=== PATIENT | female | born 1985 | race Hispanic/Latino ===

== ENCOUNTER 2022-01-25 03:42 | Emergency (ER) | payer SELFPAY ==
[2022-01-25 07:04] LABS: Bilirubin,Urine NEG (Negative); Blood,Urine SM (Negative); Color,Urine Amber (Yellow)
[2022-01-25 07:13] LABS: Amphetamine Screen,Urine PRESUMPTIVE POSITIVE; Benzodiazepines Screen,Urine PRESUMPTIVE NEGATIVE; Cannabinoid Screen,Urine PRESUMPTIVE NEGATIVE; Cocaine Screen,Urine PRESUMPTIVE NEGATIVE; Methadone Screen,Urine PRESUMPTIVE NEGATIVE; Opiate Screen,Urine PRESUMPTIVE POSITIVE
[2022-01-25 07:15] LABS: Mucus,Urine 3+ /HPF
[2022-01-25 07:17] LABS: HCG Qualitative,Urine Negative (Negative)
[2022-01-25 08:08] LABS: Basophils # (Auto) 0.1 K/mm3 (0.0-0.1); Basophils % (Auto) 1.5 % (0.0-1.8); Hemoglobin 10.7 gm/dl (10.1-14.3); Lymphocytes % (Auto) 21.5 % (13.4-35.0); Mean Corpuscular HGB Conc 31 % (30-34); Mean Corpuscular Volume 71 fl (79-97); Monocytes # (Auto) 0.5 K/mm3 (0.0-0.8); Monocytes % (Auto) 9.7 % (0.0-7.3); Platelet Count 285 K/mm3 (140-440); Red Blood Count 4.78 M/mm3 (3.65-5.03); Red Cell Distribution Width 17.7 % (13.2-15.2)
[2022-01-25 08:25] LABS: BUN/Creatinine Ratio 20; Blood Urea Nitrogen 12 mg/dL (7-17); Calcium 9.1 mg/dL (8.4-10.2); Hemolysis Index 19
--- NOTE | 2022-01-25 11:21 | Emergency Department Report ---
ED Psych HPI - General Chief Complaint: Psych Stated Complaint: SUICIDAL Time Seen by Provider: 01/25/22 06:15 Source: patient Mode of arrival: Ambulatory - History of Present Illness Initial Comments: Patient presents with stating that she has been having an parasitic infection has been going on for several years. She states that she recently used IV heroin and meth last night. She states that the heroin makes the worms go away. She states that she is feeling homicidal towards her clinical staff educator for giving her the meth. She has no suicidal ideation. - Related Data Allergies Allergy/AdvReac Type Severity Reaction Status Date / Time risperidone [From Risperdal] Allergy Unknown Verified 01/25/22 05:23 ED Review of Systems ROS: Stated complaint: SUICIDAL Other details as noted in HPI Constitutional: denies: chills, fever Eyes: denies: eye pain, eye discharge, vision change ENT: denies: ear pain, throat pain Respiratory: denies: cough, shortness of breath, wheezing Cardiovascular: denies: chest pain, palpitations Endocrine: no symptoms reported Gastrointestinal: denies: abdominal pain, nausea, diarrhea Genitourinary: denies: urgency, dysuria, discharge Musculoskeletal: denies: back pain, joint swelling, arthralgia Skin: denies: rash, lesions Neurological: denies: headache, weakness, paresthesias Psychiatric: as per HPI, anxiety, homicidal thoughts. denies: depression Hematological/Lymphatic: denies: easy bleeding, easy bruising ED Past Medical Hx - Past Medical History Hx HIV: Yes - Surgical History Past Surgical History?: No - Social History Smoking Status: Current Every Day Smoker Substance Use Type: Methamphetamines ED Physical Exam - General Limitations: No Limitations General appearance: alert, in no apparent distress - Head Head exam: Present: atraumatic, normocephalic - Eye Eye exam: Present: normal appearance - ENT ENT exam: Present: mucous membranes moist - Neck Neck exam: Present: normal inspection - Respiratory Respiratory exam: Present: normal lung sounds bilaterally. Absent: respiratory distress - Cardiovascular Cardiovascular Exam: Present: regular rate, normal rhythm. Absent: systolic murmur, diastolic murmur, rubs, gallop - GI/Abdominal GI/Abdominal exam: Present: soft, normal bowel sounds - Extremities Exam Extremities exam: Present: normal inspection - Back Exam Back exam: Present: normal inspection - Neurological Exam Neurological exam: Present: alert, oriented X3 - Psychiatric Psychiatric exam: Present: normal affect, normal mood - Skin Skin exam: Present: warm (Excoriations and several scratches and picking at skin.). Absent: rash ED Course Vital Signs 01/25/22 01/25/22 01/25/22 03:42 05:24 09:39 Temperature 98.1 F 97.8 F Pulse Rate 117 H 96 H 101 H Respiratory 20 18 18 Rate Blood Pressure 171/103 146/86 127/75 [Right] O2 Sat by Pulse 100 100 99 Oximetry ED Medical Decision Making - Lab Data Result diagrams: 01/25/22 07:37 01/25/22 07:36 Lab Results 01/25/22 01/25/22 01/25/22 Range/Units 06:53 06:53 07:36 WBC (4.5-11.0) K/mm3 RBC (3.65-5.03) M/mm3 Hgb (10.1-14.3) gm/dl Hct (30.3-42.9) % MCV (79-97) fl MCH (28-32) pg MCHC (30-34) % RDW (13.2-15.2) % Plt Count (140-440) K/mm3 Lymph % (Auto) (13.4-35.0) % Bradley % (Auto) (0.0-7.3) % Eos % (Auto) (0.0-4.3) % Baso % (Auto) (0.0-1.8) % Lymph # (Auto) (1.2-5.4) K/mm3 Bradley # (Auto) (0.0-0.8) K/mm3 Eos # (Auto) (0.0-0.4) K/mm3 Baso # (Auto) (0.0-0.1) K/mm3 Seg Neutrophils % (40.0-70.0) % Seg Neutrophils # (1.8-7.7) K/mm3 Sodium 137 (137-145) mmol/L Potassium 3.5 L (3.6-5.0) mmol/L Chloride 102.1 (98-107) mmol/L Carbon Dioxide 22 (22-30) mmol/L Anion Gap 16 mmol/L BUN 12 (7-17) mg/dL Creatinine 0.6 (0.6-1.2) mg/dL Estimated GFR > 60 ml/min BUN/Creatinine Ratio 20 % Glucose 94 (65-100) mg/dL Calcium 9.1 (8.4-10.2) mg/dL Urine Color Marcela (Yellow) Urine Turbidity Turbid (Clear) Urine pH 6.0 (5.0-7.0) Ur Specific [place] 1.024 (1.003-1.030) Urine Protein 100 mg/dl (Negative) mg/dL Urine Glucose (UA) Neg (Negative) mg/dL Urine Ketones 80 (Negative) mg/dL Urine Blood Sm (Negative) Urine Nitrite Neg (Negative) Urine Bilirubin Neg (Negative) Urine Urobilinogen 2.0 (<2.0) mg/dL Ur Leukocyte Esterase Tr (Negative) Urine WBC (Auto) 22.0 H (0.0-6.0) /HPF Urine RBC (Auto) 16.0 (0.0-6.0) /HPF U Epithel Cells (Auto) 243.0 H (0-13.0) /HPF Urine Mucus 3+ /HPF Urine HCG, Qual Negative (Negative) Salicylates (2.8-20.0) mg/dL Urine Opiates Screen Presumptive positive Urine Methadone Screen Presumptive negative Acetaminophen (10.0-30.0) ug/mL Ur Barbiturates Screen Presumptive negative Ur Phencyclidine Scrn Presumptive negative Ur Amphetamines Screen Presumptive positive U Benzodiazepines Scrn Presumptive negative Urine Cocaine Screen Presumptive negative U Marijuana (THC) Screen Presumptive negative Drugs of Abuse Note Disclamer 01/25/22 01/25/22 01/25/22 Range/Units 07:36 07:36 07:37 WBC 4.8 (4.5-11.0) K/mm3 RBC 4.78 (3.65-5.03) M/mm3 Hgb 10.7 (10.1-14.3) gm/dl Hct 34.0 (30.3-42.9) % MCV 71 L (79-97) fl MCH 22 L (28-32) pg MCHC 31 (30-34) % RDW 17.7 H (13.2-15.2) % Plt Count 285 (140-440) K/mm3 Lymph % (Auto) 21.5 (13.4-35.0) % Bradley % (Auto) 9.7 H (0.0-7.3) % Eos % (Auto) 1.0 (0.0-4.3) % Baso % (Auto) 1.5 (0.0-1.8) % Lymph # (Auto) 1.0 L (1.2-5.4) K/mm3 Bradley # (Auto) 0.5 (0.0-0.8) K/mm3 Eos # (Auto) 0.0 (0.0-0.4) K/mm3 Baso # (Auto) 0.1 (0.0-0.1) K/mm3 Seg Neutrophils % 66.3 (40.0-70.0) % Seg Neutrophils # 3.2 (1.8-7.7) K/mm3 Sodium (137-145) mmol/L Potassium (3.6-5.0) mmol/L Chloride (98-107) mmol/L Carbon Dioxide (22-30) mmol/L Anion Gap mmol/L BUN (7-17) mg/dL Creatinine (0.6-1.2) mg/dL Estimated GFR ml/min BUN/Creatinine Ratio % Glucose (65-100) mg/dL Calcium (8.4-10.2) mg/dL Urine Color (Yellow) Urine Turbidity (Clear) Urine pH (5.0-7.0) Ur Specific [place] (1.003-1.030) Urine Protein (Negative) mg/dL Urine Glucose (UA) (Negative) mg/dL Urine Ketones (Negative) mg/dL Urine Blood (Negative) Urine Nitrite (Negative) Urine Bilirubin (Negative) Urine Urobilinogen (<2.0) mg/dL Ur Leukocyte Esterase (Negative) Urine WBC (Auto) (0.0-6.0) /HPF Urine RBC (Auto) (0.0-6.0) /HPF U Epithel Cells (Auto) (0-13.0) /HPF Urine Mucus /HPF Urine HCG, Qual (Negative) Salicylates < 0.3 L (2.8-20.0) mg/dL Urine Opiates Screen Urine Methadone Screen Acetaminophen 5.0 L (10.0-30.0) ug/mL Ur Barbiturates Screen Ur Phencyclidine Scrn Ur Amphetamines Screen U Benzodiazepines Scrn Urine Cocaine Screen U Marijuana (THC) Screen Drugs of Abuse Note - Medical Decision Making Chief medical diagnosis: Heroin induced psychosis Differential medical diagnosis substance-induced mood disorder, homicidal ideation I will sign [id number] I will get blood work I will get psych consult and I will reevaluate the patient. Patient has been medically cleared. Critical care attestation.: If time is entered above; I have spent that time in minutes in the direct care of this critically ill patient, excluding procedure time. ED Disposition Clinical Impression: Methamphetamine-induced psychotic disorder, Homicidal ideation Disposition: [address] [place] [address] Is pt being admited?: No Does the pt Need Aspirin: No Condition: Stable
[2022-01-25 14:17] VITALS: BP 141/75
--- NOTE | 2022-01-25 14:26 | Consultation ---
History of Present Illness - Reason for Consult Consult date: 01/25/22 Reason for consult: MHE - History of Present Psychiatric Illness Admission Note Patient here because she is "Not so well" HPI 36 year old patient seen in the ER today. Patient state that she is "Not so well" came because she needs to detox after having taken heroin and meth. Patient statses that she has parasites coming out of her body "Like a thread" and it got worse when she contracted HIV. Patient states that these parasites were seen yesterday in her car and hospital room and states "Now i have proof". Patient states that she has a past dx of Paranoid Parasitosis. Patient could not remember names of past medications except risperdal which she states she is allergic to as it makes her "Bleed". Patient states that she has not been eating or sleeping well. Patient denies any SI/HI at this time. Patient will be admitted for inpatient psychiatric evaluation and substance abuse detox at this time. PAST PSYCHIATRIC HISTORY: Diagnoses: Paranoid Parasitosis Suicide attempts or Self-harm behavior; Yes Prior psychiatric hospitalizations: Yes Substance Abuse history: Heroin, Meth Previous psychiatric medications tried: Yes Outpatient treatment: PAST MEDICAL HISTORY: Family Psychiatric History None reported or documented SOCIAL HISTORY Marital Status: Single Living Arrangements:Lives alone Employment Status: Unemployed Access to guns/weapons: Denies Education: History of Abuse: Legal History: REVIEW OF SYSTEMS Constitutional: Negative for weight loss ENT: Negative for stridor Respiratory: Negative for cough or hemoptysis All other systems reviewed and are negative Diagnoses: Paranoid Parasitosis Treatment Plan Patient will be admitted for inpatient psychiatric evaluation and substance abuse detox, medication adjustment and close monitoring The patient's behavior, mood, sleep and appetite will be closely monitored. Patient will be enrolled in individual and group therapeutic sessions and encouraged to attend. Patient will be provided with a safe and structured environment. Patient's physical health needs will be addressed by the Hospitalist. Hospitalist Consulted Labs including CBC, CMP, Lipid profile and Hemoglobin A1C ordered Social Assessment will be completed and the Security Attendant will work with patient and family to ensure a suitable and safe disposition Medication adjustment will be made as clinically indicated Usual Wellness Muslim/Preservation: - Start Trazodone 50 mg po QHS The patient agreed on the treatment plan, understood the risk, benefit, alternative treatment, potential consequence of no treatment, and gave informed consent. Medications and Allergies Allergies Allergy/AdvReac Type Severity Reaction Status Date / Time risperidone [From Risperdal] Allergy Unknown Verified 01/25/22 05:23 Mental Status Exam - Vital signs Last Vital Signs Temp 97.8 F 01/25/22 09:39 Pulse 101 H 01/25/22 09:39 Resp 18 01/25/22 09:39 BP 127/75 01/25/22 09:39 Pulse Ox 99 01/25/22 13:19 Results Result Diagrams: 01/25/22 07:37 01/25/22 07:36 Abnormal lab results 01/25/22 01/25/22 01/25/22 Range/Units 06:53 07:36 07:36 MCV (79-97) fl MCH (28-32) pg RDW (13.2-15.2) % Williamson % (Auto) (0.0-7.3) % Lymph # (Auto) (1.2-5.4) K/mm3 Potassium 3.5 L (3.6-5.0) mmol/L Urine WBC (Auto) 22.0 H (0.0-6.0) /HPF U Epithel Cells (Auto) 243.0 H (0-13.0) /HPF Salicylates < 0.3 L (2.8-20.0) mg/dL Acetaminophen (10.0-30.0) ug/mL 01/25/22 01/25/22 Range/Units 07:36 07:37 MCV 71 L (79-97) fl MCH 22 L (28-32) pg RDW 17.7 H (13.2-15.2) % Williamson % (Auto) 9.7 H (0.0-7.3) % Lymph # (Auto) 1.0 L (1.2-5.4) K/mm3 Potassium (3.6-5.0) mmol/L Urine WBC (Auto) (0.0-6.0) /HPF U Epithel Cells (Auto) (0-13.0) /HPF Salicylates (2.8-20.0) mg/dL Acetaminophen 5.0 L (10.0-30.0) ug/mL All other labs normal.
[2022-01-25] MEDS ORDERED: traZODone 50 MG TAB PO SCH (22:00)
== END 2022-01-25 14:17 ==
LOC: ED 03:42
DX: F15.959 Other stimulant use, unspecified with stimulant-induced psychotic disorder, unspecified (principal); R45.850 Homicidal ideations; Z21 Asymptomatic human immunodeficiency virus [HIV] infection status; F17.290 Nicotine dependence, other tobacco product, uncomplicated; Z20.822 Contact with and (suspected) exposure to COVID-19
CPT/HCPCS: 36415; 80048; 80307; 81001; 81025; 85025; 87086; 99285; U0003; 80320; G0480